=== PATIENT | female | born 1985 | race African-American/Black ===

== ENCOUNTER 2017-04-29 23:24 | Emergency (ER) | payer SELFPAY ==
[~2017-04-29] VITALS: Ht 170.2 cm; Wt 65.0 kg
[2017-04-30 00:26] VITALS: BP 118/74
== END 2017-04-30 04:03 | disposition left against medical advice (07) ==
LOC: ER 04-30 00:02
DX: N93.9 Abnormal uterine and vaginal bleeding, unspecified (principal); Z53.21 Procedure and treatment not carried out due to patient leaving prior to being seen by health care provider